=== PATIENT | male | born 2000 | race Caucasian/White ===

== ENCOUNTER 2024-03-18 15:24 | Emergency (ER) | payer MEDICAID ==
[~2024-03-18] VITALS: Ht 170.2 cm; Wt 72.7 kg
[2024-03-18 15:25] VITALS: BP 143/75; PULSE 60; RESP 16; TEMP 97.8; O2SAT 97
== END 2024-03-18 18:39 | disposition left against medical advice (07) ==
LOC: ER 15:25
DX: R68.84 Jaw pain (principal); K08.89 Other specified disorders of teeth and supporting structures; Z53.21 Procedure and treatment not carried out due to patient leaving prior to being seen by health care provider